=== PATIENT | male | born 1930 | race Caucasian/White ===

== ENCOUNTER 2017-12-23 09:11 | Emergency (ER) | payer MEDICARE ==
--- NOTE | 2017-12-23 10:06 | ED ---
General Adult HPI <Hoang Montana - Last Filed: 12/23/17 10:12> - General Source: patient, RN notes reviewed Mode of arrival: ambulatory Limitations: no limitations <Sergey Adame - Last Filed: 12/23/17 11:23> - General Chief complaint: Fall Stated complaint: FACIAL INJURY FROM FALL Time Seen by Provider: 12/23/17 09:28 - History of Present Illness Initial comments: Patient 87-year-old male presenting to the emergency room today with a chief complaint of fall occurred 2-1/2 weeks ago he's noticed some swelling to the right jaw line. Patient states that child seems like it's getting worse and is warm. He does admit to a tender tooth in this area. Tooth #29. Patient states that he tripped and fell over a box landing on the right arm and hitting the right side of his jaw. He states there was no loss of consciousness. Patient states that he did go to his dentist this morning but is currently out of town was normal and that he could see and advised him come to the emergency room. Denies any drainage or discharge or taste in his mouth. Patient denies any headache. States at times he feels pain radiating up right ear area. Denies any other complaints or symptoms. Patient is on Coumadin last had his level checked within the month was 2.4. Patient denies any recent fever, chills , shortness of breath, chest pain, back pain, abdominal pain, nausea or vomiting , headaches or visual changes, or any other complaints. (Sergey Adame) - Related Data Home Medications Medication Instructions Recorded Confirmed Aspirin 81 mg PO HS 10/23/14 02/11/15 Beta-Carotene [Beta Carotene] 25,000 units PO DAILY 10/23/14 02/11/15 Biotin 5,000 mcg PO DAILY 10/23/14 02/11/15 Cyanocobalamin [Vitamin B-12] 500 mcg PO DAILY 10/23/14 02/11/15 Digoxin [Digox] 250 mcg PO DAILY 10/23/14 02/11/15 Donepezil HCl [Aricept] 5 mg PO DAILY 10/23/14 02/11/15 Flaxseed [Flaxseed Oil] 1,000 mg PO DAILY 10/23/14 02/11/15 Furosemide 40 mg PO DAILY 10/23/14 02/11/15 Garlic 1 mg PO DAILY 10/23/14 02/11/15 LORazepam [Lorazepam] 0.5 mg PO BID 10/23/14 02/11/15 Levothyroxine Sodium [Synthroid] 125 mcg PO DAILY 10/23/14 02/11/15 Magnesium 500 mg PO DAILY 10/23/14 02/11/15 Metoprolol Tartrate [Lopressor] 25 mg PO DAILY 10/23/14 02/11/15 Multivit-Min/FA/Lycopene/Lut 1 mg PO DAILY 10/23/14 02/11/15 [Centrum Silver Tablet] Psyllium Husk (with Sugar) 1 packet PO HS 10/23/14 02/11/15 [Metamucil Powder] Simvastatin 10 mg PO DAILY 10/23/14 02/11/15 Tamsulosin HCl [Flomax] 0.4 mg PO DAILY 10/23/14 02/11/15 Topiramate [Topamax] 25 mg PO DIRECTED 10/23/14 02/11/15 Warfarin [Coumadin] 2.5 mg PO HS 10/23/14 02/11/15 Zinc 5 mg PO HS 10/23/14 02/11/15 buPROPion HCL [Bupropion HCl] 75 mg PO DAILY 10/23/14 02/11/15 Previous Rx's Medication Instructions Recorded Cyclobenzaprine [Flexeril] 10 mg PO TID #14 tab 02/11/15 predniSONE 20 mg PO BID #10 tab 02/11/15 Penicillin V Potassium [Pen Vee K] 500 mg PO QID #40 tablet 12/23/17 Allergies Allergy/AdvReac Type Severity Reaction Status Date / Time tetracycline AdvReac Rash/Hives Verified 12/23/17 09:20 Review of Systems ROS Other: All systems not noted in ROS Statement are negative. <Hoang Montana - Last Filed: 12/23/17 10:12> ROS Other: All systems not noted in ROS Statement are negative. <Sergey Adame - Last Filed: 12/23/17 11:23> ROS Statement: Those systems with pertinent positive or pertinent negative responses have been documented in the HPI. Past Medical History Past Medical History: Atrial Fibrillation, Heart Failure, Hyperlipidemia, Hypertension, Thyroid Disorder Additional Past Medical History / Comment(s): frontal lobe infarct History of Any Multi-Drug Resistant Organisms: None Reported Past Surgical History: Joint Replacement, Orthopedic Surgery, Pacemaker, Tonsillectomy Additional Past Surgical History / Comment(s): guerda partial knee replacements, rectal fistula repair, prostate cancer with radiation treatment Past Psychological History: No Psychological Hx Reported Smoking Status: Former smoker Past Alcohol Use History: None Reported Past Drug Use History: None Reported <Sergey Adame - Last Filed: 12/23/17 11:23> General Exam <Hoang Montana - Last Filed: 12/23/17 10:12> Limitations: no limitations <AdameSergey - Last Filed: 12/23/17 11:23> - General Exam Comments Initial Comments: General: The patient is awake and alert, in no distress, and does not appear acutely ill. Eye: Pupils are equal, round and reactive to light, extra-ocular movements are intact. No nystagmus. There is normal conjunctiva bilaterally. No signs of icterus. Ears, nose, mouth and throat: There are moist mucous membranes and no oral lesions. Tender to palpation over tooth #29. No abscess visualized. Uvula midline. Patient is also having difficulty. Does have tenderness over right mid mandible. Able to fully open and close mouth. Neck: The neck is supple, there is no tenderness or JVD. Cardiovascular: There is a regular rate and rhythm. No murmur, rub or gallop is appreciated. Respiratory: Lungs are clear to auscultation, respirations are non-labored, breath sounds are equal. No wheezes, stridor, rales, or rhonchi. Musculoskeletal: Normal ROM, no tenderness. Strength 5/5. Sensation intact. Pulses equal bilaterally 2+. Neurological: A&O x 3. CN II-XII intact, There are no obvious motor or sensory deficits. Coordination appears grossly intact. Speech is normal. Skin: Skin is warm and dry and no rashes or lesions are noted. Psychiatric: Cooperative, appropriate mood & affect, normal judgment. (Sergey Adame) Course <Hoang Montana - Last Filed: 12/23/17 10:12> <Sergey Adame - Last Filed: 12/23/17 11:23> Vital Signs 12/23/17 09:17 Temperature 98.5 F Pulse Rate 78 Respiratory 18 Rate Blood Pressure 117/73 O2 Sat by Pulse 95 Oximetry - Reevaluation(s) Reevaluation #1: 12/23/17 10:00 P supervision: I did proceed a [id number] evaluation the patient did discuss the events and findings with him. Patient did fall over 2 weeks ago he is on blood thinners. He complains some increased pain and swelling to his right mandible. He states of bruising to his right arm is improving. He denies any headache or neck pain. He does have pain when he bites down on his teeth he points with a right lower mandible tooth is tender. He did also state he could not get into his dentist today. I do agree with the assessment and plan. (Hoang Montnaa) Medical Decision Making <Hoang Montana - Last Filed: 12/23/17 10:12> <Sergey Adame - Last Filed: 12/23/17 11:23> - Medical Decision Making Patient's CT and x-rays reviewed and are negative for any acute abnormality. Results were discussed with the patient. Patient's findings are consistent with dental abscess. Patient will be started on antibiotics advised follow-up with dentist. Sclerae return here to the emergency room symptoms increase or worsen or for any other concerns. (Sergey Adame) Disposition <Hoang Montana - Last Filed: 12/23/17 10:12> Is patient prescribed a controlled substance at d/c from ED?: No Time of Disposition: 11:22 <Sergey Adame - Last Filed: 12/23/17 11:23> Clinical Impression: Dental abscess, Fall Disposition: HOME SELF-CARE Condition: Good Instructions: Dental Abscess (ED) Additional Instructions: Please use medication as discussed. Please follow-up with dentist in the next 2 -5 days. Please return to emergency room if the symptoms increase or worsen or for any other concerns. Prescriptions: Penicillin V Potassium [Pen Vee K] 500 mg PO QID #40 tablet Referrals: Milan Womack MD [Primary Care Provider] - 1-2 days
--- NOTE | 2017-12-23 10:49 | XR ---
Mandible HISTORY: Trauma and pain 5 views of the mandible Bone mineralization, joint spaces and alignment are maintained. IMPRESSION: No fracture or dislocation is evident.
--- NOTE | 2017-12-23 11:13 | CT ---
EXAMINATION TYPE: CT brain wo con DATE OF EXAM: 12/23/2017 COMPARISON: CT brain 11/10/2014 HISTORY: Trauma and pain CT DLP: 1147 mGycm Automated exposure control for dose reduction was used. Helical imaging through the brain. FINDINGS: Cerebral vascular calcifications again noted. Cortical atrophy is stable. There is no hemorrhage or h ydrocephalus. There is encephalomalacia in the right frontal lobe as on prior exam. Periventricular w subhash matter low-attenuation again noted. Orbits show symmetric appearance. IMPRESSION: STABLE EXAM, NO ACUTE ABNORMALITIES EVIDENT. CHRONIC SMALL VESSEL ISCHEMIC CHANGES.
[2017-12-23 11:26] VITALS: TEMP 98
[2017-12-23 11:43] VITALS: BP 132/80; PULSE 66; RESP 16
== END 2017-12-23 11:42 | disposition home or self-care (01) ==
LOC: EC 09:11
DX: K04.7 Periapical abscess without sinus (principal); I48.91 Unspecified atrial fibrillation; I11.0 Hypertensive heart disease with heart failure; I50.9 Heart failure, unspecified; E78.5 Hyperlipidemia, unspecified; E07.9 Disorder of thyroid, unspecified; Z95.0 Presence of cardiac pacemaker; Z88.8 Allergy status to other drugs, medicaments and biological substances; Z79.01 Long term (current) use of anticoagulants; Z79.82 Long term (current) use of aspirin; Z79.899 Other long term (current) drug therapy; Z87.891 Personal history of nicotine dependence; W01.198A Fall on same level from slipping, tripping and stumbling with subsequent striking against other object, initial encounter; Y99.0 Civilian activity done for income or pay; Y92.69 Other specified industrial and construction area as the place of occurrence of the external cause
CPT/HCPCS: 70110; 70450; 99284

== ENCOUNTER 2018-05-24 11:48 | Emergency (ER) | payer MEDICARE ==
[2018-05-24 11:53] VITALS: BP 152/73; PULSE 74; RESP 18; TEMP 97.8
--- NOTE | 2018-05-24 12:24 | ED ---
General Adult HPI - General Chief complaint: Recheck/Abnormal Lab/Rx Stated complaint: Needs Stiches removed Time Seen by Provider: 05/24/18 11:59 Source: patient, RN notes reviewed Mode of arrival: ambulatory Limitations: no limitations - History of Present Illness Initial comments: 87-year-old male presents emergency Department chief complaint of suture removal. Patient states he had a fall one week ago in [place] was seen at a facility had sutures placed did have imaging of his face, hand. Patient states that he is instructed to have sutures removed today. Patient offers no other complaints. He states that there is no increased bleeding no increased pain. - Related Data Home Medications Medication Instructions Recorded Confirmed Aspirin 81 mg PO HS 10/23/14 02/11/15 Beta-Carotene [Beta Carotene] 25,000 units PO DAILY 10/23/14 02/11/15 Biotin 5,000 mcg PO DAILY 10/23/14 02/11/15 Cyanocobalamin [Vitamin B-12] 500 mcg PO DAILY 10/23/14 02/11/15 Digoxin [Digox] 250 mcg PO DAILY 10/23/14 02/11/15 Donepezil HCl [Aricept] 5 mg PO DAILY 10/23/14 02/11/15 Flaxseed [Flaxseed Oil] 1,000 mg PO DAILY 10/23/14 02/11/15 Furosemide 40 mg PO DAILY 10/23/14 02/11/15 Garlic 1 mg PO DAILY 10/23/14 02/11/15 LORazepam [Lorazepam] 0.5 mg PO BID 10/23/14 02/11/15 Levothyroxine Sodium [Synthroid] 125 mcg PO DAILY 10/23/14 02/11/15 Magnesium 500 mg PO DAILY 10/23/14 02/11/15 Metoprolol Tartrate [Lopressor] 25 mg PO DAILY 10/23/14 02/11/15 Multivit-Min/FA/Lycopene/Lut 1 mg PO DAILY 10/23/14 02/11/15 [Centrum Silver Tablet] Psyllium Husk (with Sugar) 1 packet PO HS 10/23/14 02/11/15 [Metamucil Powder] Simvastatin 10 mg PO DAILY 10/23/14 02/11/15 Tamsulosin HCl [Flomax] 0.4 mg PO DAILY 10/23/14 02/11/15 Topiramate [Topamax] 25 mg PO DIRECTED 10/23/14 02/11/15 Warfarin [Coumadin] 2.5 mg PO HS 10/23/14 02/11/15 Zinc 5 mg PO HS 10/23/14 02/11/15 buPROPion HCL [Bupropion HCl] 75 mg PO DAILY 10/23/14 02/11/15 Previous Rx's Medication Instructions Recorded Cyclobenzaprine [Flexeril] 10 mg PO TID #14 tab 02/11/15 predniSONE 20 mg PO BID #10 tab 02/11/15 Penicillin V Potassium [Pen Vee K] 500 mg PO QID #40 tablet 12/23/17 Allergies Allergy/AdvReac Type Severity Reaction Status Date / Time tetracycline AdvReac Rash/Hives Verified 12/23/17 09:20 Review of Systems ROS Statement: Those systems with pertinent positive or pertinent negative responses have been documented in the HPI. ROS Other: All systems not noted in ROS Statement are negative. Past Medical History Past Medical History: Atrial Fibrillation, Heart Failure, Hyperlipidemia, Hypertension, Thyroid Disorder Additional Past Medical History / Comment(s): frontal lobe infarct History of Any Multi-Drug Resistant Organisms: None Reported Past Surgical History: Joint Replacement, Orthopedic Surgery, Pacemaker, Tonsillectomy Additional Past Surgical History / Comment(s): guerda partial knee replacements, rectal fistula repair, prostate cancer with radiation treatment Past Psychological History: No Psychological Hx Reported Smoking Status: Former smoker Past Alcohol Use History: None Reported Past Drug Use History: None Reported General Exam Limitations: no limitations General appearance: alert, in no apparent distress Head exam: Present: atraumatic, normocephalic, normal inspection Eye exam: Present: PERRL, EOMI, periorbital swelling (Mild right, old ecchymosis noted, sutures in place the right eyebrow). Absent: normal appearance, scleral icterus, conjunctival injection ENT exam: Present: normal exam, normal oropharynx, mucous membranes moist, TM's normal bilaterally, normal external ear exam Neck exam: Present: normal inspection, full ROM. Absent: tenderness, meningismus, lymphadenopathy Respiratory exam: Present: normal lung sounds bilaterally. Absent: respiratory distress, wheezes, rales, rhonchi, stridor Cardiovascular Exam: Present: regular rate, normal rhythm, normal heart sounds. Absent: systolic murmur, diastolic murmur, rubs, gallop, clicks Course Vital Signs 05/24/18 11:51 Temperature 97.8 F Pulse Rate 74 Respiratory 18 Rate Blood Pressure 152/73 O2 Sat by Pulse 99 Oximetry Medical Decision Making - Medical Decision Making 87-year-old male presented for suture removal. Suture removal was performed patient tolerated well no complications no signs of infection wound is closed and well healed. Disposition Clinical Impression: Encounter for removal of sutures Disposition: HOME SELF-CARE Condition: Stable Instructions: Stitches Removal (ED) Additional Instructions: Please return to the Emergency Department if symptoms worsen or any other concerns. Is patient prescribed a controlled substance at d/c from ED?: No Referrals: Milan Womack MD [Primary Care Provider] - 1-2 days Time of Disposition: 12:23
== END 2018-05-24 12:43 | disposition home or self-care (01) ==
LOC: EC 11:48
DX: Z48.02 Encounter for removal of sutures (principal); I48.91 Unspecified atrial fibrillation; I11.0 Hypertensive heart disease with heart failure; I50.9 Heart failure, unspecified; E78.5 Hyperlipidemia, unspecified; E07.9 Disorder of thyroid, unspecified; Z86.73 Personal history of transient ischemic attack (TIA), and cerebral infarction without residual deficits; Z96.653 Presence of artificial knee joint, bilateral; Z95.0 Presence of cardiac pacemaker; Z85.46 Personal history of malignant neoplasm of prostate; Z87.891 Personal history of nicotine dependence; Z79.82 Long term (current) use of aspirin; Z79.01 Long term (current) use of anticoagulants; Z79.899 Other long term (current) drug therapy; Z88.1 Allergy status to other antibiotic agents
CPT/HCPCS: 99281

== ENCOUNTER → 2018-06-18 | Outpatient (CLI) | payer MEDICARE ==
--- NOTE | 2018-06-18 16:05 | CT ---
EXAMINATION TYPE: CT brain wo con DATE OF EXAM: 06/18/2018 COMPARISON: 12/23/2017 HISTORY: Fall. CT DLP: [address] of the brain was performed. The ventricles, basal cisterns and sulci overlying the cerebral convexities demonstrate mild enlargem ent. Remote insult right frontal lobe. There is no evidence for intracranial hemorrhage or sulcal effacement. There is decreased attenuation about the periventricular white matter and deep white matter of both c erebral hemispheres, compatible with chronic small vessel ischemia. Differential diagnosis does inclu de demyelination. No mass effects are seen.No midline shift. Osseous calvarium is intact. Right supraorbital soft tissue fullness may reflect recent hematoma. If symptoms persist consider MRI. IMPRESSION: 1. Age related atrophic and chronic small vessel ischemic change without acute intracranial process s een at this time.
== END | disposition home or self-care (01) ==
LOC: RADCTMAIN 06-04 12:47
PROVIDERS: ATTEND Psychiatry & Neurology Neurology
DX: Z53.9 Procedure and treatment not carried out, unspecified reason (principal)

== ENCOUNTER 2018-06-28 01:30 | Emergency (ER) | payer MEDICARE ==
[2018-06-28 01:38] VITALS: PULSE 74; TEMP 99.5
[2018-06-28] MEDS ORDERED: SODIUM CHLORIDE 0.9% 500 ML 500 ML IV STA (02:45)
--- NOTE | 2018-06-28 03:03 | XR ---
EXAMINATION TYPE: XR chest 2V DATE OF EXAM: 06/28/2018 COMPARISON: October 23, 2014 HISTORY: Chest pain TECHNIQUE: Frontal and lateral views of the chest are obtained. FINDINGS: There is no heart failure nor confluent pneumonic infiltrate. Costophrenic angles are aida r. There is left axillary pacemaker with the lead tips in the right ventricle. Bony thorax is intact. IMPRESSION: No active cardiopulmonary disease. No change.
[2018-06-28 03:28] LABS: Basophils % (A) 0 %; Eosinophils # (A) 0.1 k/uL (0-0.7); Eosinophils % (A) 1 %; HCT 38.8 % (39.0-53.0); HGB 12.3 gm/dL (13.0-17.5); Lymphocytes # (A) 0.9 k/uL (1.0-4.8); Lymphocytes % (A) 6 %; MCH 31.7 pg (25.0-35.0); MCHC 31.8 g/dL (31.0-37.0); MCV 99.8 fL (80.0-100.0); Mean Platelet Volume 6.8; Monocytes # (A) 0.8 k/uL (0-1.0); Monocytes % (A) 5 %; Neutrophils # (A) 11.7 k/uL (1.3-7.7); Neutrophils % (A) 85 %; Platelet Count 210 k/uL (150-450); RBC 3.88 m/uL (4.30-5.90); RDW 13.5 % (11.5-15.5); WBC 13.7 k/uL (3.8-10.6)
[2018-06-28 03:38] LABS: ALT 29 U/L (21-72); AST 26 U/L (17-59); Albumin 3.5 g/dL (3.5-5.0); Alkaline Phosphatase 62 U/L (38-126); Anion Gap 9 mmol/L; Blood Urea Nitrogen 21 mg/dL (9-20); Calcium 8.9 mg/dL (8.4-10.2); Carbon Dioxide 26 mmol/L (22-30); Chloride 102 mmol/L (98-107); Glucose 134 mg/dL (74-99); Potassium 4.5 mmol/L (3.5-5.1); Sodium 137 mmol/L (137-145); Total Bilirubin 1.2 mg/dL (0.2-1.3); Total Protein 6.4 g/dL (6.3-8.2)
[2018-06-28 03:46] LABS: Creatine Kinase 40 U/L (55-170)
[2018-06-28 03:49] LABS: Appearance,Urine Clear (Clear); Bilirubin,Urine Negative (Negative); Blood,Urine Small (Negative); Color,Urine Yellow; Glucose,Urine (UA) Negative (Negative); Hyaline Casts,Urine 1 /lpf (0-2); Ketones,Urine Negative (Negative); Leukocyte Esterase,Urine Negative (Negative); Mucus,Urine Occasional /hpf; Nitrite,Urine Negative (Negative); PH, Urine 5.5 (5.0-8.0); Protein,Urine Trace (Negative); RBC,Urine 14 /hpf (0-5); Specific Gravity,Urine 1.022 (1.001-1.035); Urobilinogen,Urine <2.0 mg/dL (<2.0); WBC,Urine 1 /hpf (0-5)
[2018-06-28 03:59] LABS: Creatine Kinase MB 0.8 ng/mL (0.0-2.4); Troponin I <0.012 ng/mL (0.000-0.034)
[2018-06-28 04:03] LABS: INR 1.9 (<1.2); Partial Thromboplastin Time 31.8 sec (22.0-30.0); Prothrombin Time 18.3 sec (9.0-12.0)
--- NOTE | 2018-06-28 04:03 | XR ---
EXAMINATION TYPE: XR wrist complete RT DATE OF EXAM: 06/28/2018 COMPARISON: NONE HISTORY: Pain TECHNIQUE: 3 views FINDINGS: There is a plate with screws fusing the first MP joint. Detail is limited by the cast. Ther e is moderate osteoarthritis at the first carpometacarpal joint. Carpal bones are intact. I see no fr acture. IMPRESSION: Osteoarthritis at the base of the thumb. No acute bony abnormality.
[2018-06-28] MEDS ORDERED: HYDROcodone/APAP 7.5-325MG 1 EACH TAB PO ONE (04:38)
[2018-06-28] MEDS ORDERED: ACET/COD 300 MG/30 MG STARTER PACK 6 TAB BTL PO STA (04:38)
[2018-06-28] MEDS ORDERED: CEPHALEXIN 500MG STARTER PACK 4 CAP BTL PO STA (04:38)
--- NOTE | 2018-06-28 04:42 | ED ---
Extremity Problem HPI - General Source: family Mode of arrival: wheelchair Limitations: no limitations <Mirta Curtis - Last Filed: 06/28/18 06:04> <Aida Meyer - Last Filed: 07/01/18 09:02> - General Chief complaint: Extremity Problem,Nontraumatic Stated complaint: Confusion Time Seen by Provider: 06/28/18 01:51 - History of Present Illness Initial comments: 87-year-old male patient presents to the emergency department today for complaints of right wrist pain. Patient had pins and screws placed to the right thumb after a fracture in April. Patient had the surgery on [address] Faye with [facility]. Patient states that he had been doing fine after the surgery, but today started to have pain in the wrist radiating up into the hand. Patient does have a bi-valved thumb spica cast in place. He denies any numbess or tingling to the hand. Denies any fever or chills. Patient also had an episode yesterday where he became dizzy, stumbled, and seemed somewhat confused. This episode lasted only a short period and patient has been doing well since. He believes it may be related to having later breakfast than usual. Denies any chest pain or shortness of breath. Denies sweats with the episode. Denies any nausea or vomiting. Patient denies any recent rash, abdominal pain, diarrhea, constipation, back pain, dizziness, weakness, hematuria, dysuria, urinary urgency, urinary frequency, headache, visual changes, or any other complaints. (Mirta Curtis) - Related Data Home Medications Medication Instructions Recorded Confirmed Aspirin 81 mg PO HS 10/23/14 02/11/15 Beta-Carotene [Beta Carotene] 25,000 units PO DAILY 10/23/14 02/11/15 Biotin 5,000 mcg PO DAILY 10/23/14 02/11/15 Cyanocobalamin [Vitamin B-12] 500 mcg PO DAILY 10/23/14 02/11/15 Digoxin [Digox] 250 mcg PO DAILY 10/23/14 02/11/15 Donepezil HCl [Aricept] 5 mg PO DAILY 10/23/14 02/11/15 Flaxseed [Flaxseed Oil] 1,000 mg PO DAILY 10/23/14 02/11/15 Furosemide 40 mg PO DAILY 10/23/14 02/11/15 Garlic 1 mg PO DAILY 10/23/14 02/11/15 LORazepam [Lorazepam] 0.5 mg PO BID 10/23/14 02/11/15 Levothyroxine Sodium [Synthroid] 125 mcg PO DAILY 10/23/14 02/11/15 Magnesium 500 mg PO DAILY 10/23/14 02/11/15 Metoprolol Tartrate [Lopressor] 25 mg PO DAILY 10/23/14 02/11/15 Multivit-Min/FA/Lycopene/Lut 1 mg PO DAILY 10/23/14 02/11/15 [Centrum Silver Tablet] Psyllium Husk (with Sugar) 1 packet PO HS 10/23/14 02/11/15 [Metamucil Powder] Simvastatin 10 mg PO DAILY 10/23/14 02/11/15 Tamsulosin HCl [Flomax] 0.4 mg PO DAILY 10/23/14 02/11/15 Topiramate [Topamax] 25 mg PO DIRECTED 10/23/14 02/11/15 Warfarin [Coumadin] 2.5 mg PO HS 10/23/14 02/11/15 Zinc 5 mg PO HS 10/23/14 02/11/15 buPROPion HCL [Bupropion HCl] 75 mg PO DAILY 10/23/14 02/11/15 Previous Rx's Medication Instructions Recorded Cyclobenzaprine [Flexeril] 10 mg PO TID #14 tab 02/11/15 predniSONE 20 mg PO BID #10 tab 02/11/15 Penicillin V Potassium [Pen Vee K] 500 mg PO QID #40 tablet 12/23/17 Cephalexin [Keflex] 500 mg PO Q6H #40 cap 06/28/18 Hydrocodone/Acetaminophen [Eucha 1 tab PO Q6HR PRN 3 Days #12 tab 06/28/18 7.5-325] Allergies Allergy/AdvReac Type Severity Reaction Status Date / Time tetracycline AdvReac Rash/Hives Verified 06/28/18 01:38 Review of Systems ROS Other: All systems not noted in ROS Statement are negative. <Mirta Curtis - Last Filed: 06/28/18 06:04> ROS Other: All systems not noted in ROS Statement are negative. <Aida Meyer - Last Filed: 07/01/18 09:02> ROS Statement: Those systems with pertinent positive or pertinent negative responses have been documented in the HPI. Past Medical History Past Medical History: Atrial Fibrillation, Heart Failure, Hyperlipidemia, Hypertension, Thyroid Disorder Additional Past Medical History / Comment(s): frontal lobe infarct History of Any Multi-Drug Resistant Organisms: None Reported Past Surgical History: Joint Replacement, Orthopedic Surgery, Pacemaker, Tonsillectomy Additional Past Surgical History / Comment(s): guerda partial knee replacements, rectal fistula repair, prostate cancer with radiation treatment Past Psychological History: No Psychological Hx Reported Smoking Status: Former smoker Past Alcohol Use History: None Reported Past Drug Use History: None Reported <Mirta Curtis M - Last Filed: 06/28/18 06:04> General Exam Limitations: no limitations General appearance: alert, in no apparent distress, other (This is a well- developed, well-nourished elderly adult male patient in no acute distress. Vital signs upon presentation are temperature 99.5F, pulse 74, respirations 18 , blood pressure 138/69, pulse ox 95% on room air.) Eye exam: Present: normal appearance, PERRL, EOMI. Absent: scleral icterus, conjunctival injection, periorbital swelling ENT exam: Present: normal exam, normal oropharynx, mucous membranes moist Respiratory exam: Present: normal lung sounds bilaterally. Absent: respiratory distress, wheezes, rales, rhonchi, stridor Cardiovascular Exam: Present: regular rate, normal rhythm, normal heart sounds. Absent: systolic murmur, diastolic murmur, rubs, gallop, clicks GI/Abdominal exam: Present: soft, normal bowel sounds. Absent: distended, tenderness, guarding, rebound, rigid Extremities exam: Present: full ROM, normal capillary refill, other (There is swelling and mild erythema noted to the ulnar aspect of the right wrist. Skin is pink, warm, dry. Cap refills less than 3 seconds. Radial pulses 2+ and equal bilaterally). Absent: normal inspection, tenderness, pedal edema, joint swelling, calf tenderness Neurological exam: Present: alert, oriented X3, CN II-XII intact Psychiatric exam: Present: normal affect, normal mood Skin exam: Present: warm, dry, intact, normal color. Absent: rash <Mirta Curtis M - Last Filed: 06/28/18 06:04> Vital Signs 06/28/18 06/28/18 01:33 05:02 Temperature 99.5 F Pulse Rate 74 74 Respiratory 18 16 Rate Blood Pressure 138/69 134/66 O2 Sat by Pulse 95 95 Oximetry Medical Decision Making - Lab Data Result diagrams: 06/28/18 03:15 06/28/18 03:15 - EKG Data -: EKG Interpreted by Me - Radiology Data Radiology results: report reviewed, image reviewed <Mirta Curtis - Last Filed: 06/28/18 06:04> - Lab Data Result diagrams: 06/28/18 03:15 06/28/18 03:15 <Aida Meyer - Last Filed: 07/01/18 09:02> - Medical Decision Making 87-year-old male patient presents to the emergency department today for evaluation of right wrist pain and a dizzy episode. Physical examination did reveal swelling and erythema over the ulnar aspect of the right wrist. Labs reviewed and did reveal elevated white blood cell count at 13.7. BUN is 21, creatinine 0.59. Urinalysis did have some small amount of blood but no evidence of infection. X-ray of the right wrist showed no acute osseous abnormalities. I did remove the cast, skin is intact in the wounds. Cast was replaced utilizing Pj wrap. He does have an appointment with his orthopedic surgeon on Saturday. We'll discharge patient on Keflex for possibility of cellulitis. Patient is instructed to follow-up with his primary care physician for further evaluation after a dizzy episode. Return parameters were discussed in detail. He verbalizes understanding and agrees with this plan. (Mirta Curtis) I was available for consultation in the emergency department. The history and physical exam were done by the midlevel provider. I was consulted for this patient's care. I reviewed the case with the midlevel provider and based on their presentation of the patient, I agree with the assessment, medical decision making and plan of care as documented. (Aida Meyer) - Lab Data Lab Results 06/28/18 06/28/18 06/28/18 Range/Units 03:15 03:15 03:15 WBC 13.7 H (3.8-10.6) k/uL RBC 3.88 L (4.30-5.90) m/uL Hgb 12.3 L (13.0-17.5) gm/dL Hct 38.8 L (39.0-53.0) % MCV 99.8 (80.0-100.0) fL MCH 31.7 (25.0-35.0) pg MCHC 31.8 (31.0-37.0) g/dL RDW 13.5 (11.5-15.5) % Plt Count 210 (150-450) k/uL Neutrophils % 85 % Lymphocytes % 6 % Monocytes % 5 % Eosinophils % 1 % Basophils % 0 % Neutrophils # 11.7 H (1.3-7.7) k/uL Lymphocytes # 0.9 L (1.0-4.8) k/uL Monocytes # 0.8 (0-1.0) k/uL Eosinophils # 0.1 (0-0.7) k/uL Basophils # 0.0 (0-0.2) k/uL PT (9.0-12.0) sec INR (<1.2) APTT (22.0-30.0) sec Sodium 137 (137-145) mmol/L Potassium 4.5 (3.5-5.1) mmol/L Chloride 102 (98-107) mmol/L Carbon Dioxide 26 (22-30) mmol/L Anion Gap 9 mmol/L BUN 21 H (9-20) mg/dL Creatinine 0.59 L (0.66-1.25) mg/dL Est GFR (CKD-EPI)AfAm >90 (>60 ml/min/1.73 sqM) Est GFR (CKD-EPI)NonAf >90 (>60 ml/min/1.73 sqM) Glucose 134 H (74-99) mg/dL Calcium 8.9 (8.4-10.2) mg/dL Magnesium 2.0 (1.6-2.3) mg/dL Total Bilirubin 1.2 (0.2-1.3) mg/dL AST 26 (17-59) U/L ALT 29 (21-72) U/L Alkaline Phosphatase 62 (38-126) U/L Total Creatine Kinase 40 L (55-170) U/L CK-MB (CK-2) 0.8 (0.0-2.4) ng/mL CK-MB (CK-2) Rel Index 2.0 Troponin I <0.012 (0.000-0.034) ng/mL Total Protein 6.4 (6.3-8.2) g/dL Albumin 3.5 (3.5-5.0) g/dL Urine Color Urine Appearance (Clear) Urine pH (5.0-8.0) Ur Specific [place] (1.001-1.035) Urine Protein (Negative) Urine Glucose (UA) (Negative) Urine Ketones (Negative) Urine Blood (Negative) Urine Nitrite (Negative) Urine Bilirubin (Negative) Urine Urobilinogen (<2.0) mg/dL Ur Leukocyte Esterase (Negative) Urine RBC (0-5) /hpf Urine WBC (0-5) /hpf Hyaline Casts (0-2) /lpf Urine Mucus (None) /hpf 06/28/18 06/28/18 Range/Units 03:15 03:34 WBC (3.8-10.6) k/uL RBC (4.30-5.90) m/uL Hgb (13.0-17.5) gm/dL Hct (39.0-53.0) % MCV (80.0-100.0) fL MCH (25.0-35.0) pg MCHC (31.0-37.0) g/dL RDW (11.5-15.5) % Plt Count (150-450) k/uL Neutrophils % % Lymphocytes % % Monocytes % % Eosinophils % % Basophils % % Neutrophils # (1.3-7.7) k/uL Lymphocytes # (1.0-4.8) k/uL Monocytes # (0-1.0) k/uL Eosinophils # (0-0.7) k/uL Basophils # (0-0.2) k/uL PT 18.3 H (9.0-12.0) sec INR 1.9 H (<1.2) APTT 31.8 H (22.0-30.0) sec Sodium (137-145) mmol/L Potassium (3.5-5.1) mmol/L Chloride (98-107) mmol/L Carbon Dioxide (22-30) mmol/L Anion Gap mmol/L BUN (9-20) mg/dL Creatinine (0.66-1.25) mg/dL Est GFR (CKD-EPI)AfAm (>60 ml/min/1.73 sqM) Est GFR (CKD-EPI)NonAf (>60 ml/min/1.73 sqM) Glucose (74-99) mg/dL Calcium (8.4-10.2) mg/dL Magnesium (1.6-2.3) mg/dL Total Bilirubin (0.2-1.3) mg/dL AST (17-59) U/L ALT (21-72) U/L Alkaline Phosphatase (38-126) U/L Total Creatine Kinase (55-170) U/L CK-MB (CK-2) (0.0-2.4) ng/mL CK-MB (CK-2) Rel Index Troponin I (0.000-0.034) ng/mL Total Protein (6.3-8.2) g/dL Albumin (3.5-5.0) g/dL Urine Color Yellow Urine Appearance Clear (Clear) Urine pH 5.5 (5.0-8.0) Ur Specific [place] 1.022 (1.001-1.035) Urine Protein Trace H (Negative) Urine Glucose (UA) Negative (Negative) Urine Ketones Negative (Negative) Urine Blood Small H (Negative) Urine Nitrite Negative (Negative) Urine Bilirubin Negative (Negative) Urine Urobilinogen <2.0 (<2.0) mg/dL Ur Leukocyte Esterase Negative (Negative) Urine RBC 14 H (0-5) /hpf Urine WBC 1 (0-5) /hpf Hyaline Casts 1 (0-2) /lpf Urine Mucus Occasional H (None) /hpf - EKG Data EKG Comments: EKG obtained at oh to 17 just ventricular paced rhythm with occasional PVCs. Ventricular rate of 70, QRS duration is 190, QT 456, QTc 492. (Mirta Curtis) - Radiology Data 3 views of the right wrist are obtained. There is a plate with screws fusing the first MP joint. Details limited by the cast. 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 Carpal bones are in tact. I see no fracture. 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 No acute bony abnormality. Two-view x-ray of the chest is obtained. There is no heart failure for pneumonic infiltrate. costophrenic angles are clear. there is left axillar pacemaker with a lead tips in the right ventricle. bony thorax is intact. impression by dr. garcia shows no active cardiopulmonary disease. no change. (Mirta Curtis) Disposition Is patient prescribed a controlled substance at d/c from ED?: No Time of Disposition: 04:42 <Mirta Curtis - Last Filed: 06/28/18 06:04> <Aida Meyer - Last Filed: 07/01/18 09:02> Clinical Impression: Wrist pain, Cellulitis, Dizziness, Dehydration Disposition: HOME SELF-CARE Condition: Good Instructions: Dehydration (ED), Cellulitis (ED), Dizziness (ED) Additional Instructions: Increase fluids. Take medications as directed. Follow-up with your surgeon for recheck as soon as possible. Return immediately for any new, worsening, or concerning symptoms Prescriptions: Cephalexin [Keflex] 500 mg PO Q6H #40 cap Hydrocodone/Acetaminophen [Eucha 7.5-325] 1 tab PO Q6HR PRN 3 Days #12 tab PRN Reason: Pain Referrals: Milan Womack MD [Primary Care Provider] - 1-2 days
[2018-06-28 05:04] VITALS: BP 134/66; RESP 16
== END 2018-06-28 05:02 | disposition home or self-care (01) ==
LOC: EC 01:30
DX: L03.113 Cellulitis of right upper limb (principal); E86.0 Dehydration; M18.11 Unilateral primary osteoarthritis of first carpometacarpal joint, right hand; D72.829 Elevated white blood cell count, unspecified; R31.9 Hematuria, unspecified; I48.91 Unspecified atrial fibrillation; E78.5 Hyperlipidemia, unspecified; I11.0 Hypertensive heart disease with heart failure; I50.9 Heart failure, unspecified; E07.9 Disorder of thyroid, unspecified; Z87.891 Personal history of nicotine dependence; Z88.1 Allergy status to other antibiotic agents; Z79.01 Long term (current) use of anticoagulants; Z79.82 Long term (current) use of aspirin; Z79.899 Other long term (current) drug therapy; Z85.46 Personal history of malignant neoplasm of prostate; Z86.73 Personal history of transient ischemic attack (TIA), and cerebral infarction without residual deficits; Z96.653 Presence of artificial knee joint, bilateral; Z95.0 Presence of cardiac pacemaker; Z92.3 Personal history of irradiation
CPT/HCPCS: 36415; 71046; 80053; 81001; 82550; 82553; 83735; 84484; 85025; 85610; 85730; 93005; 99284

== ENCOUNTER → 2019-05-29 | Outpatient (CLI) | payer MEDICARE ==
--- NOTE | 2019-05-29 11:32 | CT ---
EXAMINATION TYPE: CT brain wo con DATE OF EXAM: 05/29/2019 HISTORY: Follow up for subdural hematoma CT DLP: 1044.9 mGycm. Automated Exposure Control for Dose Reduction was Utilized. TECHNIQUE: CT scan of the head is performed without contrast. COMPARISON: CT brain June 18, 2018. FINDINGS: There is no acute intracranial hemorrhage or midline shift identified. There is diffuse v entricular and sulcal prominence consistent with diffuse cerebral atrophy. Atrophy is most prominent superiorly. There is low-attenuation in the periventricular white matter consistent with chronic sma ll vessel ischemic change. This is slightly more prominent in the right anterior and posterior water shed regions. There is new small left supraorbital scalp hematoma axial image 31. The globes are inta ct and the visualized sinuses are clear. The calvarium is intact. IMPRESSION: No acute intracranial hemorrhage or midline shift. There is fairly severe diffuse age-r elated cerebral atrophy and chronic small vessel ischemic change identified with progression from 201 8 study noted. Correlate for Alzheimer's and other neurodegenerative disorders.
== END | disposition home or self-care (01) ==
LOC: RADCTMAIN 10:45
PROVIDERS: ATTEND Psychiatry & Neurology Neurology
DX: G31.1 Senile degeneration of brain, not elsewhere classified (principal); I67.82 Cerebral ischemia; G44.321 Chronic post-traumatic headache, intractable
CPT/HCPCS: 70450

== ENCOUNTER 2019-11-24 03:41 | Observation (INO) | payer MEDICARE ==
[2019-11-24 04:18] LABS: Basophils % (A) 0 %; Eosinophils # (A) 0.1 k/uL (0-0.7); Eosinophils % (A) 1 %; HCT 25.6 % (39.0-53.0); Hypochromasia Slight; Lymphocytes # (A) 0.5 k/uL (1.0-4.8); Lymphocytes % (A) 7 %; MCH 31.7 pg (25.0-35.0); MCHC 31.4 g/dL (31.0-37.0); Macrocytosis Slight; Monocytes # (A) 0.4 k/uL (0-1.0); Monocytes % (A) 6 %; Neutrophils # (A) 6.1 k/uL (1.3-7.7); Neutrophils % (A) 85 %; Platelet Count 127 k/uL (150-450); RBC 2.53 m/uL (4.30-5.90); RDW 14.1 % (11.5-15.5); WBC 7.3 k/uL (3.8-10.6)
[2019-11-24 04:28] LABS: Partial Thromboplastin Time 37.9 sec (22.0-30.0); Prothrombin Time 39.7 sec (9.0-12.0)
[2019-11-24 04:30] LABS: African American GFR (CKD) >90 (>60 ml/min/1.73 sqM); Anion Gap 5 mmol/L; Blood Urea Nitrogen 14 mg/dL (9-20); Carbon Dioxide 17 mmol/L (22-30); Chloride 120 mmol/L (98-107); Glucose 87 mg/dL (74-99); Non-African American GFR(CKD) >90 (>60 ml/min/1.73 sqM); Sodium 142 mmol/L (137-145)
[2019-11-24 04:40] LABS: Potassium 2.5 mmol/L (3.5-5.1)
[2019-11-24 04:41] LABS: Calcium 5.6 mg/dL (8.4-10.2)
--- NOTE | 2019-11-24 04:54 | CT ---
EXAMINATION TYPE: CT brain alcira jarrell con DATE OF EXAM: 11/24/2019 COMPARISON: CT brain 05/29/2019 HISTORY: Fall Headache. Neck pain CT DLP: 1542.70 mGycm Automated exposure control for dose reduction was used. There is moderate diffuse cerebral cortical atrophy. There is hypodensity in the right frontal lobe a nd right parietal lobe related to old infarct. There is no midline shift. There is no sign of intracr anial hemorrhage. The calvarium is intact. Skull base is intact. Cervical vertebra show some straightening. There is moderate narrowing of disc spaces throughout the cervical spine. There is no compression fracture. There is multilevel cervical hypertrophic facet art hropathy. The skull base is intact. There is normal aeration of the temporal bones. IMPRESSION: Cerebral atrophy. 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 No acute intracranial ab normality. Moderate multilevel spondylotic changes in the cervical spine. No fracture seen.
[2019-11-24 06:00] LABS: African American GFR (CKD) >90 (>60 ml/min/1.73 sqM); Anion Gap 4 mmol/L; Blood Urea Nitrogen 20 mg/dL (9-20); Calcium 8.9 mg/dL (8.4-10.2); Carbon Dioxide 28 mmol/L (22-30); Chloride 106 mmol/L (98-107); Glucose 114 mg/dL (74-99); Non-African American GFR(CKD) 85 (>60 ml/min/1.73 sqM); Potassium 4.2 mmol/L (3.5-5.1); Sodium 138 mmol/L (137-145)
[2019-11-24] MEDS ORDERED: NALOXONE 0.4 MG/ML 1 ML VIAL IV PRN (07:08)
--- NOTE | 2019-11-24 07:27 | ED ---
Fall HPI - General Chief Complaint: Fall Stated Complaint: Fall Time Seen by Provider: 11/24/19 04:05 Source: patient, EMS Mode of arrival: EMS - History of Present Illness Initial Comments: Patient is an 88-year-old man brought by ambulance to be evaluated. The patient states that he had gotten up to use the bathroom and then had fallen striking his head. He then was too weak to get up. He was eventually able to crawl across the floor and then EMS was activated. The patient is denying any other injury. States that his head pain is only mild. He has had multiple falls over the past few months. 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 Fall Witnessed: no Place Fall Occurred: home Loss of Consciousness: none Symptoms Prior to Fall: none Location: head Severity scale (1-10): 0 Context: tripped/slipped - Related Data Home Medications Medication Instructions Recorded Confirmed Aspirin 81 mg PO HS 10/23/14 11/24/19 Digoxin [Digox] 250 mcg PO DAILY 10/23/14 11/24/19 Donepezil HCl [Aricept] 5 mg PO DAILY 10/23/14 11/24/19 Flaxseed [Flaxseed Oil] 1,000 mg PO DAILY 10/23/14 11/24/19 Furosemide 40 mg PO DAILY 10/23/14 11/24/19 Garlic 1 tab PO DAILY 10/23/14 11/24/19 Levothyroxine Sodium [Synthroid] 125 mcg PO DAILY 10/23/14 11/24/19 Metoprolol Tartrate [Lopressor] 25 mg PO DAILY 10/23/14 11/24/19 Multivit-Min/FA/Lycopene/Lut 1 mg PO DAILY 10/23/14 11/24/19 [Centrum Silver Tablet] Psyllium Husk (with Sugar) 1 tsp PO HS 10/23/14 11/24/19 [Metamucil Powder] Warfarin [Coumadin] 2.5 mg PO SUMOWEFRSA 10/23/14 11/24/19 Cholecalciferol [Vitamin D3 (25 1,000 unit PO DAILY 11/24/19 11/24/19 Mcg = 1000 Iu)] Cyanocobalamin (Vitamin B-12) 1,000 mcg PO DAILY 11/24/19 11/24/19 [Vitamin B-12] Thebes-3 Fatty Acids [Thebes-3] 2,000 mg PO DAILY 11/24/19 11/24/19 Simvastatin [Zocor] 10 mg PO HS 11/24/19 11/24/19 Tamsulosin HCl [Flomax] 0.4 mg PO HS 11/24/19 11/24/19 Warfarin [Coumadin] 3.75 mg PO TUTH 11/24/19 11/24/19 Allergies Allergy/AdvReac Type Severity Reaction Status Date / Time tetracycline Allergy Rash/Hives Verified 11/24/19 08:54 Review of Systems ROS Statement: Those systems with pertinent positive or pertinent negative responses have been documented in the HPI. ROS Other: All systems not noted in ROS Statement are negative. Constitutional: Reports: weakness Eyes: Denies: eye pain, vision change ENT: Denies: ear pain Respiratory: Denies: cough, dyspnea Cardiovascular: Denies: chest pain, palpitations, edema Gastrointestinal: Denies: abdominal pain, nausea, vomiting Genitourinary: Denies: dysuria Musculoskeletal: Denies: back pain Skin: Denies: rash Neurological: Denies: headache, weakness, numbness Hematological/Lymphatic: Denies: easy bleeding Past Medical History Past Medical History: Atrial Fibrillation, Heart Failure, Hyperlipidemia, Hypertension, Thyroid Disorder Additional Past Medical History / Comment(s): frontal lobe infarct History of Any Multi-Drug Resistant Organisms: None Reported Past Surgical History: Joint Replacement, Orthopedic Surgery, Pacemaker, Tonsillectomy Additional Past Surgical History / Comment(s): guerda partial knee replacements, rectal fistula repair, prostate cancer with radiation treatment Past Psychological History: No Psychological Hx Reported Smoking Status: Former smoker Past Alcohol Use History: None Reported Past Drug Use History: None Reported - Past Family History Father Family Medical History: CVA/TIA General Exam Limitations: no limitations General appearance: alert, in no apparent distress Head exam: Present: normocephalic, other (Scalp laceration approximately 7 cm in length.) Eye exam: Present: normal appearance, PERRL, EOMI. Absent: scleral icterus, conjunctival injection, nystagmus ENT exam: Present: normal oropharynx Neck exam: Present: normal inspection, full ROM. Absent: tenderness Respiratory exam: Present: normal lung sounds bilaterally. Absent: respiratory distress, wheezes, rales, rhonchi, stridor, chest wall tenderness Cardiovascular Exam: Present: regular rate, normal rhythm, normal heart sounds. Absent: systolic murmur, diastolic murmur, rubs, gallop GI/Abdominal exam: Present: soft. Absent: distended, tenderness, guarding, rebound, mass Extremities exam: Present: normal inspection, normal capillary refill. Absent: pedal edema, calf tenderness Back exam: Present: normal inspection. Absent: CVA tenderness (R), CVA tenderness (L) Neurological exam: Present: alert, oriented X3, CN II-XII intact. Absent: motor sensory deficit Skin exam: Present: warm, dry, intact, normal color. Absent: rash Course Vital Signs 11/24/19 11/24/19 11/24/19 04:11 05:00 05:30 Temperature 98.7 F Pulse Rate 66 68 70 Pulse Rate [ Pulse Oximetery ] Respiratory 18 18 18 Rate Blood Pressure 135/69 131/65 131/58 Blood Pressure [Right Arm] O2 Sat by Pulse 95 97 97 Oximetry 11/24/19 11/24/19 11/24/19 06:00 06:30 07:00 Temperature Pulse Rate 62 70 74 Pulse Rate [ Pulse Oximetery ] Respiratory Rate Blood Pressure 118/92 156/67 122/62 Blood Pressure [Right Arm] O2 Sat by Pulse 95 95 96 Oximetry 11/24/19 08:14 Temperature 98.0 F Pulse Rate 74 Pulse Rate [ 65 Pulse Oximetery ] Respiratory 19 Rate Blood Pressure 122/62 Blood Pressure 128/71 [Right Arm] O2 Sat by Pulse 97 Oximetry Medical Decision Making - Medical Decision Making Patient is an 88-year-old man brought by ambulance after a fall. I did perform suture repair to the patient's scalp laceration. He then went for computed tomography scan and the remainder workup which was largely unremarkable. The patient not able to ambulate. He is only able to stand at the bedside with the support of to the nursing staff. As the patient lives with an 86-year-old brother who is not able to help him ambulate, patient be admitted for possible placement versus rehabilitation. - Lab Data Result diagrams: 11/24/19 14:30 11/24/19 05:31 Lab Results 11/24/19 11/24/19 11/24/19 Range/Units 03:55 03:58 03:58 WBC 7.3 (3.8-10.6) k/uL RBC 2.53 L (4.30-5.90) m/uL Hgb 8.0 L (13.0-17.5) gm/dL Hct 25.6 L (39.0-53.0) % MCV 101.0 H (80.0-100.0) fL MCH 31.7 (25.0-35.0) pg MCHC 31.4 (31.0-37.0) g/dL RDW 14.1 (11.5-15.5) % Plt Count 127 L (150-450) k/uL Neutrophils % 85 % Lymphocytes % 7 % Monocytes % 6 % Eosinophils % 1 % Basophils % 0 % Neutrophils # 6.1 (1.3-7.7) k/uL Lymphocytes # 0.5 L (1.0-4.8) k/uL Monocytes # 0.4 (0-1.0) k/uL Eosinophils # 0.1 (0-0.7) k/uL Basophils # 0.0 (0-0.2) k/uL Hypochromasia Slight Macrocytosis Slight PT (9.0-12.0) sec INR (<1.2) APTT (22.0-30.0) sec Sodium (137-145) mmol/L Potassium (3.5-5.1) mmol/L Chloride (98-107) mmol/L Carbon Dioxide (22-30) mmol/L Anion Gap mmol/L BUN (9-20) mg/dL Creatinine (0.66-1.25) mg/dL Est GFR (CKD-EPI)AfAm (>60 ml/min/1.73 sqM) Est GFR (CKD-EPI)NonAf (>60 ml/min/1.73 sqM) Glucose (74-99) mg/dL Calcium (8.4-10.2) mg/dL TSH (0.465-4.680) mIU/L Blood Type A Positive Blood Type Confirm A Positive Blood Type Recheck No Previous Record Bld Type Recheck Status CABO Indicated Antibody Screen NEGATIVE Spec Expiration Date 11/27/2019 - 235711/24/19 11/24/19 11/24/19 Range/Units 03:58 03:58 03:58 WBC (3.8-10.6) k/uL RBC (4.30-5.90) m/uL Hgb (13.0-17.5) gm/dL Hct (39.0-53.0) % MCV (80.0-100.0) fL MCH (25.0-35.0) pg MCHC (31.0-37.0) g/dL RDW (11.5-15.5) % Plt Count (150-450) k/uL Neutrophils % % Lymphocytes % % Monocytes % % Eosinophils % % Basophils % % Neutrophils # (1.3-7.7) k/uL Lymphocytes # (1.0-4.8) k/uL Monocytes # (0-1.0) k/uL Eosinophils # (0-0.7) k/uL Basophils # (0-0.2) k/uL Hypochromasia Macrocytosis PT 39.7 H (9.0-12.0) sec INR 4.0 H (<1.2) APTT 37.9 H (22.0-30.0) sec Sodium 142 (137-145) mmol/L Potassium 2.5 L* (3.5-5.1) mmol/L Chloride 120 H (98-107) mmol/L Carbon Dioxide 17 L (22-30) mmol/L Anion Gap 5 mmol/L BUN 14 (9-20) mg/dL Creatinine 0.44 L (0.66-1.25) mg/dL Est GFR (CKD-EPI)AfAm >90 (>60 ml/min/1.73 sqM) Est GFR (CKD-EPI)NonAf >90 (>60 ml/min/1.73 sqM) Glucose 87 (74-99) mg/dL Calcium 5.6 L* (8.4-10.2) mg/dL TSH 3.290 (0.465-4.680) mIU/L Blood Type Blood Type Confirm Blood Type Recheck Bld Type Recheck Status Antibody Screen Spec Expiration Date 11/24/19 Range/Units 05:31 WBC (3.8-10.6) k/uL RBC (4.30-5.90) m/uL Hgb (13.0-17.5) gm/dL Hct (39.0-53.0) % MCV (80.0-100.0) fL MCH (25.0-35.0) pg MCHC (31.0-37.0) g/dL RDW (11.5-15.5) % Plt Count (150-450) k/uL Neutrophils % % Lymphocytes % % Monocytes % % Eosinophils % % Basophils % % Neutrophils # (1.3-7.7) k/uL Lymphocytes # (1.0-4.8) k/uL Monocytes # (0-1.0) k/uL Eosinophils # (0-0.7) k/uL Basophils # (0-0.2) k/uL Hypochromasia Macrocytosis PT (9.0-12.0) sec INR (<1.2) APTT (22.0-30.0) sec Sodium 138 (137-145) mmol/L Potassium 4.2 (3.5-5.1) mmol/L Chloride 106 (98-107) mmol/L Carbon Dioxide 28 (22-30) mmol/L Anion Gap 4 mmol/L BUN 20 (9-20) mg/dL Creatinine 0.68 (0.66-1.25) mg/dL Est GFR (CKD-EPI)AfAm >90 (>60 ml/min/1.73 sqM) Est GFR (CKD-EPI)NonAf 85 (>60 ml/min/1.73 sqM) Glucose 114 H (74-99) mg/dL Calcium 8.9 (8.4-10.2) mg/dL TSH (0.465-4.680) mIU/L Blood Type Blood Type Confirm Blood Type Recheck Bld Type Recheck Status Antibody Screen Spec Expiration Date Disposition Clinical Impression: Fall, Scalp laceration Narrative: Inability to ambulate Disposition: HOME SELF-CARE Condition: Fair Is patient prescribed a controlled substance at d/c from ED?: No
[2019-11-24] MEDS: SODIUM CHLORIDE 0.9% 1,000 ML IV SCH (10:32)
--- NOTE | 2019-11-24 14:46 | P.HPIM ---
History of Present Illness H&P Date: 11/24/19 Chief Complaint: fall 88-year-old male with a history of congestive heart failure, hypertension, diabetes, dyslipidemia, and A. fib who presented to the emergency after a fall where he couldn't get up. In the ER he went through an extensive evaluation. His vital signs on arrival within normal limits. Initial laboratory analysis showed some significant derangement. However his blood work was repeated an hour and a half later and did not show any metabolic jamar angements. He was found to have a hemoglobin of 8 which appears lower than his baseline. Repeat CBC ordered. Patient was unable to ambulate in the emergency department and therefore was placed in observation. Patient examined at bedside. He reports that this morning he had a trip and fall incident. He denies any lightheadedness, dizziness, passing out, chest pain, or shortness of breath. He states that since COVID has started he has been ambulating less. He is no longer working outside of the home and he is spending most of his time sitting or in bed. He denies any strokelike symptoms including changes in his vision, speech, facial droop, or unilateral weakness. Review of Systems Pertinent positives and negatives as discussed in HPI, a complete review of systems was performed and all other systems are negative. Past Medical History Past Medical History: Atrial Fibrillation, Heart Failure, Hyperlipidemia, Hypertension, Thyroid Disorder Additional Past Medical History / Comment(s): frontal lobe infarct History of Any Multi-Drug Resistant Organisms: None Reported Past Surgical History: Joint Replacement, Orthopedic Surgery, Pacemaker, Tonsillectomy Additional Past Surgical History / Comment(s): guerda partial knee replacements, rectal fistula repair, prostate cancer with radiation treatment Type of Cardiac Device: Permanent Pacemaker Device Placement Date:: 2006 (unknown for sure) Past Psychological History: No Psychological Hx Reported Smoking Status: Former smoker Past Alcohol Use History: None Reported Past Drug Use History: None Reported Additional History: Uses a walker, lives with his brother - Past Family History Father Family Medical History: CVA/TIA Medications and Allergies Home Medications Medication Instructions Recorded Confirmed Type Aspirin 81 mg PO HS 10/23/14 11/24/19 History Digoxin [Digox] 250 mcg PO DAILY 10/23/14 11/24/19 History Donepezil HCl [Aricept] 5 mg PO DAILY 10/23/14 11/24/19 History Flaxseed [Flaxseed Oil] 1,000 mg PO DAILY 10/23/14 11/24/19 History Furosemide 40 mg PO DAILY 10/23/14 11/24/19 History Garlic 1 tab PO DAILY 10/23/14 11/24/19 History Levothyroxine Sodium [Synthroid] 125 mcg PO DAILY 10/23/14 11/24/19 History Metoprolol Tartrate [Lopressor] 25 mg PO DAILY 10/23/14 11/24/19 History Multivit-Min/FA/Lycopene/Lut 1 mg PO DAILY 10/23/14 11/24/19 History [Centrum Silver Tablet] Psyllium Husk (with Sugar) 1 tsp PO HS 10/23/14 11/24/19 History [Metamucil Powder] Warfarin [Coumadin] 2.5 mg PO [facility]EFRSA 10/23/14 11/24/19 History Cholecalciferol [Vitamin D3 (25 1,000 unit PO DAILY 11/24/19 11/24/19 History Mcg = 1000 Iu)] Cyanocobalamin (Vitamin B-12) 1,000 mcg PO DAILY 11/24/19 11/24/19 History [Vitamin B-12] [place]-3 Fatty Acids [[place]-3] 2,000 mg PO DAILY 11/24/19 11/24/19 History Simvastatin [Zocor] 10 mg PO HS 11/24/19 11/24/19 History Tamsulosin HCl [Flomax] 0.4 mg PO HS 11/24/19 11/24/19 History Warfarin [Coumadin] 3.75 mg PO [facility] 11/24/19 11/24/19 History Allergies Allergy/AdvReac Type Severity Reaction Status Date / Time tetracycline Allergy Rash/Hives Verified 11/24/19 08:54 Physical Exam Osteopathic Statement: *. No significant issues noted on an osteopathic structural exam other than those noted in the History and Physical/Consult. Vitals: Vital Signs Temp Pulse Pulse Resp BP BP Pulse Ox 11/24/19 12:00 98.6 F 67 14 125/75 98 11/24/19 08:14 98.0 F 74 65 19 122/62 128/71 97 11/24/19 07:00 74 122/62 96 11/24/19 06:30 70 156/67 95 11/24/19 06:00 62 118/92 95 11/24/19 05:30 70 18 131/58 97 11/24/19 05:00 68 18 131/65 97 11/24/19 04:11 98.7 F 66 18 135/69 95 Intake and Output 11/23/19 11/24/19 11/24/19 22:59 06:59 14:59 Other: Weight 90.718 kg 90.718 kg General: non toxic, no distress, appears at stated age, normal weight Derm: no unusual rashes/lesions no unusual ecchymoses, warm, dry Head: atraumatic, normocephalic, symmetric Eyes: EOMI, no lid lag, anicteric sclera, pupils equal round reactive to light ENT: Nose and ears atraumatic, no thrush, no pharyngeal erythema Neck: No thyromegaly, no cervical lymphadenopathy, trachea midline, supple Mouth: no lip lesion, mucus membranes moist Cardiovascular: S1S2 reg, no murmur, positive posterior tibial pulse bilateral, 3+ edema, capillary refill less than 2 seconds Lungs: Decreased bs bilateral, no rhonchi, no rales , no accessory muscle use Abdominal: soft, nontender to palpation, no guarding, no appreciable organomegaly, normal bowel sounds Ext: no gross muscle atrophy, muscle strength 4 out of 5 in bilateral lower extremities grossly, muscle strength bilateral Upper extremities 5/5, no contractures, Neuro: CN II-XI grossly intact, light touch intact all 4 extremities, finger to nose within normal limits, Psych: Alert, oriented, appropriate affect Results CBC & Chem 7: 11/24/19 03:58 11/24/19 05:31 Labs: Abnormal Lab Results - Last 24 Hours (Table) 11/24/19 11/24/19 11/24/19 Range/Units 03:58 03:58 03:58 RBC 2.53 L (4.30-5.90) m/uL Hgb 8.0 L (13.0-17.5) gm/dL Hct 25.6 L (39.0-53.0) % MCV 101.0 H (80.0-100.0) fL Plt Count 127 L (150-450) k/uL Lymphocytes # 0.5 L (1.0-4.8) k/uL PT 39.7 H (9.0-12.0) sec INR 4.0 H (<1.2) APTT 37.9 H (22.0-30.0) sec Potassium 2.5 L* (3.5-5.1) mmol/L Chloride 120 H (98-107) mmol/L Carbon Dioxide 17 L (22-30) mmol/L Creatinine 0.44 L (0.66-1.25) mg/dL Glucose (74-99) mg/dL Calcium 5.6 L* (8.4-10.2) mg/dL 11/24/19 Range/Units 05:31 RBC (4.30-5.90) m/uL Hgb (13.0-17.5) gm/dL Hct (39.0-53.0) % MCV (80.0-100.0) fL Plt Count (150-450) k/uL Lymphocytes # (1.0-4.8) k/uL PT (9.0-12.0) sec INR (<1.2) APTT (22.0-30.0) sec Potassium (3.5-5.1) mmol/L Chloride (98-107) mmol/L Carbon Dioxide (22-30) mmol/L Creatinine (0.66-1.25) mg/dL Glucose 114 H (74-99) mg/dL Calcium (8.4-10.2) mg/dL Thrombosis Risk Factor Assmnt - DVT/VTE Prophylaxis DVT/VTE Prophylaxis: Pharmacologic Prophylaxis ordered - Choose All That Apply Each Risk Factor Represents 3 Points: Age 75 years or older Thrombosis Risk Factor Assessment Total Risk Factor Score: 3 Thrombosis Risk Factor Assessment Level: Moderate Risk Assessment and Plan Assessment: Generalized weakness with fall -PT/OT evaluation -Check B12 and TSH -No focal neuro deficits to indicate stroke -Likely home with home health -Patient discussed with Dr. Womack his PCP Chronic congestive heart failure, unknown ejection fraction, underlying type -Continue with Lasix, metoprolol, not chronically on an AUDRA inhibitor -Follow fluid management -Heart healthy diet Atrial fibrillation with supratherapeutic Coumadin coagulopathy -Hold Coumadin -Check PT/INR in a.m. -Continue with Lopressor and digoxin Anemia - repeat CBC to ensure this level is correct - check Ferritin and iron studies if anemia confirmed Chronic: Hypertension Dyslipidemia Hypothyroidism History of prostate cancer The patient is placed in observation with an anticipated less than 2 midnight stay for evaluation of fall. Surrogate decision-maker: Margother Titus CODE STATUS: Full DVT prophylaxis: Coumadin Discussed with: Patient, nursing, Dr. Womack Anticipated discharge date: in AM Anticipated discharge place: home with home health A total of 55 minutes was spent on the care of this complex patient more than 50% of the time was spent in counseling and care coordination.
[2019-11-24 15:23] LABS: HCT 34.8 % (39.0-53.0); MCH 31.8 pg (25.0-35.0); MCHC 31.8 g/dL (31.0-37.0); MCV 99.9 fL (80.0-100.0); Macrocytosis Slight; Mean Platelet Volume 7.8; Platelet Count 202 k/uL (150-450); RBC 3.48 m/uL (4.30-5.90); RDW 14.2 % (11.5-15.5); WBC 9.2 k/uL (3.8-10.6)
[2019-11-24 15:32] LABS: HGB 11.1 gm/dL (13.0-17.5)
[2019-11-24] MEDS: FUROSEMIDE 40 MG TAB PO SCH (15:44)
[2019-11-24] MEDS: METOPROLOL TARTRATE 25 MG TAB PO SCH (15:44)
[2019-11-24] MEDS: DIGOXIN 250 MCG TAB PO SCH (15:45)
[2019-11-24] MEDS ORDERED: ASPIRIN 81 MG PO SCH (21:00)
[2019-11-24] MEDS ORDERED: TAMSULOSIN 0.4 MG CAP.ER.24H PO SCH (21:00)
[2019-11-24] MEDS ORDERED: ATORVASTATIN 10 MG TAB PO SCH (21:00)
[2019-11-24 21:32] VITALS: RESP 12
[2019-11-25 04:40] VITALS: BP 118/56; PULSE 65; TEMP 98.5
[2019-11-25] MEDS ORDERED: LEVOTHYROXINE 125 MCG TAB PO SCH (06:30)
[2019-11-25 07:23] LABS: HCT 33.1 % (39.0-53.0); HGB 10.8 gm/dL (13.0-17.5); MCH 33.4 pg (25.0-35.0); MCHC 32.5 g/dL (31.0-37.0); MCV 102.9 fL (80.0-100.0); Macrocytosis Slight; Mean Platelet Volume 7.4; Platelet Count 175 k/uL (150-450); RBC 3.22 m/uL (4.30-5.90); RDW 14.5 % (11.5-15.5); WBC 6.5 k/uL (3.8-10.6)
[2019-11-25 07:26] LABS: Prothrombin Time 19.4 sec (9.0-12.0)
[2019-11-25 07:31] LABS: African American GFR (CKD) >90 (>60 ml/min/1.73 sqM); Anion Gap 4 mmol/L; Blood Urea Nitrogen 14 mg/dL (9-20); Calcium 8.3 mg/dL (8.4-10.2); Carbon Dioxide 27 mmol/L (22-30); Chloride 106 mmol/L (98-107); Glucose 94 mg/dL (74-99); Magnesium 1.9 mg/dL (1.6-2.3); Non-African American GFR(CKD) 87 (>60 ml/min/1.73 sqM); Sodium 137 mmol/L (137-145)
[2019-11-25] MEDS: DIGOXIN 250 MCG TAB PO SCH (08:43)
[2019-11-25] MEDS: METOPROLOL TARTRATE 25 MG TAB PO SCH (08:43)
[2019-11-25] MEDS: SODIUM CHLORIDE 0.9% 1,000 ML IV SCH (08:43)
[2019-11-25] MEDS: FUROSEMIDE 40 MG TAB PO SCH (08:43)
[2019-11-25] MEDS ORDERED: DONEPEZIL 5 MG TAB PO SCH (09:00)
--- NOTE | 2019-11-25 10:08 | P.DS ---
Providers Date of admission: 11/24/19 07:08 Expected date of discharge: 11/25/19 Attending physician: Major Holbrook MD Primary care physician: Milan Womack Hospital Course: Discharge Diagnosis: Generalized weakness Fall Scalp laceration Left ankle sprain Grade 1 Anemia, slight and outpatient follow-up Chronic congestive heart failure, unknown ejection fraction, underlying type Atrial fibrillation with supratherapeutic Coumadin coagulopathy Hypertension Dyslipidemia Hypothyroidism History of prostate cancer Hospital Course: Patient is an 88-year-old male with a history of congestive heart failure, hypertension, diabetes, dyslipidemia, and A. fib who presented to the emergency after a fall where he couldn't get up. In the ER he went through an extensive evaluation. His vital signs on arrival within normal limits. Initial laboratory analysis showed some significant derangement. However his blood work was repeated an hour and a half later and did not show any metabolic derangements. He was found to have a hemoglobin of 8 which appears lower than his baseline. Repeat CBC ordered. Patient was unable to ambulate in the emergency department and therefore was placed in observation. CBC showed hemoglobin of 11.1. Patient was seen by occupational therapy and was able to ambulate 70 feet with minimal assistance. He was observed overnight and remained alert and oriented 3. He was able to ambulate with physical therapy. He did have some left medial malleolus pain on physical exam testing appeared to have a possible grade 1 left ankle sprain. Pj wrap was applied. He was able to ambulate without any pain. Patient was determined stable for discharge. He does have some significant weakness. Arrangements were made for home health care. He'll maintain Pj wrap for the next 2 weeks with ambulation. his Coumadin coagulopathy was in the therapeutic range and he was told to resume his Coumadin on discharge. We'll follow up with Dr. Womack the next 2-3 days. Patient seen and examined at bedside. No chest pain, SOB, nausea, headache, double vision. Vital signs reviewed and stable. General: non toxic, no distress, appears at stated age Derm: warm, dry Head: blood on scalp, normocephalic, symmetric Eyes: EOMI, no lid lag, anicteric sclera Mouth: no lip lesion, mucus membranes moist Cardiovascular: S1S2 reg, no murmur, positive posterior tibial pulse bilateral, Lungs: CTA bilateral, no rhonchi, no rales , no accessory muscle use Abdominal: soft, nontender to palpation, no guarding, no appreciable organomegaly Ext: no gross muscle atrophy, 2+ edema, no contractures Neuro: CN II-XI grossly intact, no focal neuro deficits Psych: Alert, oriented, appropriate affect A total of 25 minutes of time were spent preparing this complex discharge summary . Patient Condition at Discharge: Fair Plan - Discharge Summary Discharge Rx Participant: Yes New Discharge Prescriptions: Continue Warfarin [Coumadin] 2.5 mg PO [facility]OWEFRSA Psyllium Husk (with Sugar) [Metamucil Powder] 1 tsp PO HS Multivit-Min/FA/Lycopene/Lut [Centrum Silver Tablet] 1 mg PO DAILY Metoprolol Tartrate [Lopressor] 25 mg PO DAILY Levothyroxine Sodium [Synthroid] 125 mcg PO DAILY Garlic 1 tab PO DAILY Furosemide 40 mg PO DAILY Flaxseed [Flaxseed Oil] 1,000 mg PO DAILY Donepezil HCl [Aricept] 5 mg PO DAILY Digoxin [Digox] 250 mcg PO DAILY Aspirin 81 mg PO HS Cyanocobalamin (Vitamin B-12) [Vitamin B-12] 1,000 mcg PO DAILY Cholecalciferol [Vitamin D3 (25 Mcg = 1000 Iu)] 1,000 unit PO DAILY Tamsulosin HCl [Flomax] 0.4 mg PO HS Simvastatin [Zocor] 10 mg PO HS Warfarin [Coumadin] 3.75 mg PO [facility] [place]-3 Fatty Acids [[place]-3] 2,000 mg PO DAILY Discharge Medication List Aspirin 81 mg PO HS 10/23/14 [History] Digoxin [Digox] 250 mcg PO DAILY 10/23/14 [History] Donepezil HCl [Aricept] 5 mg PO DAILY 10/23/14 [History] Flaxseed [Flaxseed Oil] 1,000 mg PO DAILY 10/23/14 [History] Furosemide 40 mg PO DAILY 10/23/14 [History] Garlic 1 tab PO DAILY 10/23/14 [History] Levothyroxine Sodium [Synthroid] 125 mcg PO DAILY 10/23/14 [History] Metoprolol Tartrate [Lopressor] 25 mg PO DAILY 10/23/14 [History] Multivit-Min/FA/Lycopene/Lut [Centrum Silver Tablet] 1 mg PO DAILY 10/23/14 [History] Psyllium Husk (with Sugar) [Metamucil Powder] 1 tsp PO HS 10/23/14 [History] Warfarin [Coumadin] 2.5 mg PO [facility]OWEFRSA 10/23/14 [History] Cholecalciferol [Vitamin D3 (25 Mcg = 1000 Iu)] 1,000 unit PO DAILY 11/24/19 [History] Cyanocobalamin (Vitamin B-12) [Vitamin B-12] 1,000 mcg PO DAILY 11/24/19 [History] [place]-3 Fatty Acids [[place]-3] 2,000 mg PO DAILY 11/24/19 [History] Simvastatin [Zocor] 10 mg PO HS 11/24/19 [History] Tamsulosin HCl [Flomax] 0.4 mg PO HS 11/24/19 [History] Warfarin [Coumadin] 3.75 mg PO [facility] 11/24/19 [History] Follow up Appointment(s)/Referral(s): Milan Womack MD [Primary Care Provider] - 1-2 days Activity/Diet/Wound Care/Special Instructions: Activity: As tolerated with walker Maintain left ankle PJ wrap while ambulating X 2 weeks Diet: Heart healthy Special Instructions: Suture removal from scalp in 5-7 days, Sutures placed on 11/24/2019 Discharge Disposition: HOME WITH HOME HEALTH SERVICES
[2019-11-25] MEDS ORDERED: WARFARIN 2.5 MG TAB PO SCH (18:00)
[2019-11-26 11:52] LABS: Ferritin 124.1 ng/mL (22.0-322.0)
[2019-11-26 12:31] LABS: % Iron Saturation 24.21 (15.00-50.00)
[2019-11-26] MEDS ORDERED: WARFARIN 2.5 MG TAB PO SCH (18:00)
== END 2019-11-25 13:00 | disposition home health service (06) ==
LOC: EC 03:41 → 3SCARD 07:08 → 5NMEDONC 19:50
PROVIDERS: ADMIT Internal Medicine; ATTEND Internal Medicine
DX: R53.1 Weakness (principal); Y92.002 Bathroom of unspecified non-institutional (private) residence as the place of occurrence of the external cause; W01.10XA Fall on same level from slipping, tripping and stumbling with subsequent striking against unspecified object, initial encounter; S01.01XA Laceration without foreign body of scalp, initial encounter; S93.402A Sprain of unspecified ligament of left ankle, initial encounter; D64.9 Anemia, unspecified; I11.0 Hypertensive heart disease with heart failure; I50.9 Heart failure, unspecified; I48.91 Unspecified atrial fibrillation; E78.5 Hyperlipidemia, unspecified; E11.9 Type 2 diabetes mellitus without complications; E03.9 Hypothyroidism, unspecified; Z85.46 Personal history of malignant neoplasm of prostate; T45.515A Adverse effect of anticoagulants, initial encounter; R79.1 Abnormal coagulation profile; Z86.73 Personal history of transient ischemic attack (TIA), and cerebral infarction without residual deficits; Z87.891 Personal history of nicotine dependence; Z79.82 Long term (current) use of aspirin; Z79.899 Other long term (current) drug therapy; Z79.890 Hormone replacement therapy; Z79.01 Long term (current) use of anticoagulants; Z88.1 Allergy status to other antibiotic agents; Z91.81 History of falling; R29.6 Repeated falls; Z92.3 Personal history of irradiation; Z96.653 Presence of artificial knee joint, bilateral; Z82.3 Family history of stroke; Z11.59 Encounter for screening for other viral diseases
CPT/HCPCS: 12002; 99285; 36415; 97162; 97535; 97166; 86900; 86901; 80048 ×2; 84443; 82607; 82728; 83540; 83550; 83735; 85025; 85027 ×2; 85610 ×2; 85730; 86850; 72125; 70450; G0378 ×3; U0003